=== PATIENT | male | born 1995 | race Caucasian/White ===

== ENCOUNTER 2017-07-04 22:05 | Emergency (ER) | payer OTHER ==
[2017-07-04 22:15] VITALS: BP 162/77; PULSE 93; RESP 16; TEMP 98.4; O2SAT 96
[2017-07-04] MEDS ORDERED: TDAP ADULT 0.5 ML INJ (BOOSTRIX) IM ONE (22:15)
[2017-07-04] MEDS ORDERED: SKIN ADHESIVE (DERMABOND) 1 EACH TP ONE (22:17)
--- NOTE | 2017-07-04 22:20 | EDPHY ---
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 This happened just prior to arrival. His pain is minimal. It does not radiate. Bleeding is controlled. He has no numbness or tingling. REVIEW OF SYSTEMS: Negative Past Medical/Surgical History: Noncontributory Smoking Status: Never smoked Physical Exam: General Appearance: Alert and no distress. Head: Pupils equal. Normal. Respiratory: No respiratory distress. Cardiac: regular rate and rhythm. Extremities: patient has a 1 cm laceration on the distal lateral aspect of his right middle finger. This does not involve the nail better joint space. It is superficial. He is neurovascularly intact distally. No foreign body palpated Skin: No rashes or lesions. Neuro: Alert. Normal mood and affect. Constitutional: Initial Vital Signs Temperature (C) 36.9 C 07/04/17 22:12 Heart Rate 93 07/04/17 22:12 Respiratory Rate 16 07/04/17 22:12 Blood Pressure 162/77 H 07/04/17 22:12 O2 Sat (%) 96 07/04/17 22:12 O2 Delivery Mode Room Air Allergies/Adverse Reactions: No Known Allergies Allergy (Unverified 07/04/17 22:12) Home Medications: Medication Instructions Recorded NK [No Known Home Meds] 07/04/17 Medical Decision Making ED Course/Re-evaluation: In the emergency department I discussed treatment options with the patient. Patient's wound will be cleaned with normal saline. He consents to Dermabond repair. Procedure: Laceration repair Indication: Laceration Patient consented to the procedure. The patient's wound was cleaned. Dermabond was used to approximate the 1 cm laceration on his right distal middle finger Patient tolerated the procedure well. He is given warnings prior to leaving. He will return with worsening symptoms. Differential Diagnosis: My differential includes but is not limited to laceration, foreign body, fracture Departure - Departure Disposition: Home, Routine, Self-Care Clinical Impression: Finger laceration Qualifiers: Encounter type: initial encounter Finger: middle finger Damage to nail status: without damage Foreign body presence: without foreign body Laterality: right Qualified Code(s): S61.212A - Laceration without foreign body of right middle finger without damage to nail, initial encounter Condition: Good Instructions: Skin Adhesive Care (ED), Laceration (ED) Referrals: Edmond Morton, DO [Primary Care Provider] - 5-7 days, if not improved
== END 2017-07-04 22:36 | disposition home or self-care (01) ==
LOC: CED 22:05
PROC: 0HQFXZZ Repair Right Hand Skin, External Approach (ICD-10-PCS; principal; 2017-07-04)
DX: S61.212A Laceration without foreign body of right middle finger without damage to nail, initial encounter (principal); Z23 Encounter for immunization; W26.0XXA Contact with knife, initial encounter

== ENCOUNTER 2018-11-07 20:22 | Emergency (ER) | payer OTHER ==
[2018-11-07] MEDS ORDERED: IBUPROFEN 800 MG TAB PO ONE ×2 (20:48→21:36)
--- NOTE | 2018-11-07 20:48 | EDPHY ---
H & P Time Seen by Provider: 11/07/18 20:47 HPI/ROS: Chief complaint. Sore throat HPI. 22-year-old male sore throat began this morning and then fever this afternoon. No cough or shortness of breath. No abdominal pain or vomiting or diarrhea. No rash. Sick contacts at home his younger brother had strep about 3 weeks ago. His father is also ill with upper respiratory infection. Otherwise no travel. Patient took Tylenol prior to arrival. ROS 10 systems were reviewed and negative with the exception of the elements mentioned in the history of present illness Past Medical/Surgical History: Healthy Social History: Single, nonsmoker, no alcohol Smoking Status: Never smoked Physical Exam: General Appearance: Alert well-developed male mild distress vital signs show temp 38 degrees, heart rate 101 Eyes: Pupils equal and round no pallor or injection. ENT, tympanic membranes are normal. Pharynx injected without exudate. Mucous membranes are moist Respiratory: There are no retractions, lungs are clear to auscultation. Cardiovascular: Regular rate and rhythm. Gastrointestinal: Abdomen is soft and nontender, no masses, bowel sounds normal. Neurological: Awake and alert, sensory and motor exams grossly normal. Skin: Warm and dry, no rashes. Musculoskeletal: Neck is supple nontender. Extremities symmetrical, full range of motion. Psychiatric: Patient is oriented X 3, there is no agitation. Constitutional: Initial Vital Signs Temperature (C) 38 C 11/07/18 20:38 Heart Rate 101 H 11/07/18 20:38 Respiratory Rate 18 11/07/18 20:38 Blood Pressure 128/80 H 11/07/18 20:38 O2 Sat (%) 94 11/07/18 20:38 O2 Delivery Mode Room Air Allergies/Adverse Reactions: No Known Allergies Allergy (Unverified 07/04/17 22:12) Home Medications: Medication Instructions Recorded NK [No Known Home Meds] 07/04/17 Medical Decision Making Procedures: Ibuprofen in the ED RSS is negative ED Course/Re-evaluation: Rapid strep screen and influenza are Negative. Patient given Decadron in the ED to help with pain and inflammation Patient is re-evaluated at 9:25 p.m.. He and I discussed laboratory evaluation , treatment plan including criteria for return importance of follow-up and further evaluation. He expresses understanding and agreement Differential Diagnosis: Considered strep pharyngitis, peritonsillar abscess, influenza, viral syndrome - Data Points Point of Care Test Results: Strep Strep Throat Swab Collection 11/07/18 Date Strep Throat Swab Swab 20:59 Collection Time Strep Result Not Detected Departure - Departure Disposition: Home, Routine, Self-Care Clinical Impression: Acute pharyngitis Qualifiers: Pharyngitis/tonsillitis etiology: unspecified etiology Qualified Code(s): J02.9 - Acute pharyngitis, unspecified Condition: Good Instructions: Pharyngitis (ED) Additional Instructions: Drink plenty of fluids and stay hydrated. Tylenol 1000 mg every 6 hr, ibuprofen 800 mg every 6 hr for fever and pain. May alternate these every 3 hr. Return for worsening symptoms Recheck in 2 days if not improving Referrals: Edmond Morton, DO [Primary Care Provider] - 2-3 days, if not improved
[2018-11-07] MEDS ORDERED: DEXAMETHASONE 4 MG TAB PO ONE (21:25)
[2018-11-07 21:47] VITALS: BP 122/67
== END 2018-11-07 21:46 | disposition home or self-care (01) ==
LOC: CED 20:22
DX: J02.9 Acute pharyngitis, unspecified (principal)
CPT/HCPCS: 670937QWER; 87400-QW-ER; 99283-ER